=== PATIENT | male | born 1965 | race Caucasian/White ===

== ENCOUNTER 2016-11-04 19:44 | Emergency (ER) | payer SELFPAY ==
[2016-11-04 21:24] LABS: CALCIUM 8.9 mg/dL (8.5-10.1); CARBON DIOXIDE 23.8 mmol/L (21-32); CHLORIDE SERUM 98 mmol/L (98-107); CREATININE SERUM 1.2 mg/dL (0.7-1.3); GFR1 > 60 mL/min; GLUCOSE SERUM 81 mg/dL (74-106); POTASSIUM SERUM 3.4 mmol/L (3.5-5.1); SODIUM SERUM 135 mmol/L (136-145)
[2016-11-04 22:09] VITALS: BP 125/72
== END 2016-11-04 22:09 | disposition other institution (70) ==
LOC: ED 19:44
PROVIDERS: Emergency Medicine
DX: R40.0 Somnolence (principal); I10 Essential (primary) hypertension; F19.10 Other psychoactive substance abuse, uncomplicated; F90.9 Attention-deficit hyperactivity disorder, unspecified type; Z88.2 Allergy status to sulfonamides; Z79.899 Other long term (current) drug therapy
CPT/HCPCS: 36415; G0480; J2310

== ENCOUNTER 2016-11-04 19:44 | Emergency (ER) | payer OTHER | END 2016-11-04 22:09 | disposition other institution (70) | LOC: ED 19:44 | DX: Z02.89 Encounter for other administrative examinations (principal) ==

== ENCOUNTER 2016-12-05 11:59 | Emergency (ER) | payer SELFPAY ==
[2016-12-05 12:01] VITALS: BP 142/90
== END 2016-12-05 13:45 | disposition other institution (70) ==
LOC: ED 11:59
DX: S63.501A Unspecified sprain of right wrist, initial encounter (principal); I10 Essential (primary) hypertension; Z88.2 Allergy status to sulfonamides; W17.89XA Other fall from one level to another, initial encounter; Y93.89 Activity, other specified; Y99.8 Other external cause status; Y92.89 Other specified places as the place of occurrence of the external cause

== ENCOUNTER 2016-12-05 11:59 | Emergency (ER) | payer OTHER | END 2016-12-05 14:25 | disposition other institution (70) | LOC: ED 11:59 | DX: Z02.89 Encounter for other administrative examinations (principal) ==